=== PATIENT | male | born 1950 | race Caucasian/White ===

== ENCOUNTER 2019-06-24 12:35 | Inpatient (IN) ==
[2019-06-24] MEDS ORDERED: AMPICILLIN/SULBACTAM SOD 3,000 MG in 0.9 % SODIUM CHLORIDE 100 ML IV STA (14:14)
[2019-06-24 14:32] LABS: Basophils # (auto) 0.02 K/uL (0-0.2); Basophils % (auto) 0.1 %; Eosinophils # (auto) 0.09 K/uL (0-0.5); Eosinophils % (auto) 0.6 %; Hematocrit (blood only) 37.4 % (42-52); Hemoglobin 12.9 g/dL (14.0-18.0); Immature Granulocytes # (auto) 0.08 K/uL (0.00-0.02); Immature Granulocytes % (auto) 0.5 %; Lymphocytes # (auto) 1.37 K/uL (1.2-3.4); Lymphocytes % (auto) 8.9 %; Mean Corpuscular Hemoglobin 31.9 pg (25-34); Mean Corpuscular Hgb Conc 34.5 g/dL (32-36); Mean Corpuscular Volume 92.3 fL (80-100); Mean Platelet Volume 11.3 fL (7.4-10.4); Monocytes # (auto) 1.17 K/uL (0.11-0.59); Monocytes % (auto) 7.6 %; Neutrophils % (auto) 82.3 %; Platelet Count 149 K/uL (130-400); RDW Coefficient of Variation 13.8 % (11.5-14.5); RDW Standard Deviation 46.8 fL (36.4-46.3); Red Blood Count 4.05 M/uL (4.7-6.1); White Blood Count 15.43 K/uL (4.8-10.8)
[2019-06-24 14:55] LABS: Alanine Aminotransferase 35 U/L (12-78); Albumin Level 3.3 gm/dl (3.4-5.0); Aspartate Aminotransferase 23 U/L (15-37); BUN Creatinine Ratio 11.7 (10-20); Blood Urea Nitrogen 13 mg/dl (7-18); Calcium 8.9 mg/dl (8.5-10.1); Carbon Dioxide 25 mmol/L (21-32); Chloride 101 mmol/L (98-107); Est GFR (African American) 81.1; Glucose 207 mg/dl (70-99); Potassium 4.1 mmol/L (3.5-5.1); Sodium 136 mmol/L (136-145)
[2019-06-24 14:58] LABS: Albumin Globulin Ratio 0.8 (0.9-2); Alkaline Phosphatase 88 U/L (45-117); Bilirubin,Total 1.1 mg/dl (0.2-1); Globulin 4.1 gm/dl (2.5-4.0); Total Protein 7.4 gm/dl (6.4-8.2)
[2019-06-24] MEDS ORDERED: AZITHROMYCIN 500 MG in DEXTROSE 5% 250 ML IV SCH (15:45)
--- NOTE | 2019-06-24 15:55 | Ultrasound Report ---
US venous doppler UE LT CLINICAL HISTORY: Left upper extremity swelling. Evaluate for deep venous thrombus. COMPARISON STUDY: No previous studies for comparison. FINDINGS: The left internal jugular, subclavian, axillary, brachial, basilic, radial and ulnar veins were patent. Dorsal left hand edema is noted. No fluid collection is identified. IMPRESSION: No deep venous thrombus within the left upper extremity. Electronically signed by: Manohar Coelho M.D. 06/24/2019 3:54 PM
--- NOTE | 2019-06-24 16:31 | XRay Report ---
LEFT HAND 3 VIEWS CLINICAL HISTORY: Cat-bite injury. FINDINGS: 3 views of the left hand are obtained. No prior studies are available for comparison at the time of dictation. The skeletal structures are osteopenic. No fracture is seen. There is no bony ero martha or periostitis. Advanced degenerative narrowing is seen at the radiocarpal articulation with bon y sclerosis. There is also degenerative change at the distal radioulnar joint. Moderate arthritic issac nge is noted first carpometacarpal articulation where there is bony sclerosis, overgrowth, and mild s ubluxation. Arthritic change is also seen involving the interphalangeal joints, distal greater than p roximal. Diffuse soft tissue edema is present throughout the wrist and hand, greatest dorsally. No newell bcutaneous gas is seen and there is no radiodense foreign body identified. IMPRESSION: 1. Diffuse soft tissue edema with no acute osseous abnormality identified. 2. Osteopenia and arthritic change as above. Electronically signed by: Elgin Selby M.D. 06/24/2019 4:29 PM
--- NOTE | 2019-06-24 16:32 | XRay Report ---
XR chest 2V routine CLINICAL HISTORY: 69 years-old Male presenting with fever eval for pna. TECHNIQUE: PA and lateral views of the chest were obtained. COMPARISON: 04/12/2012. FINDINGS: Atherosclerosis of the aortic arch. Cardiac silhouette borderline enlarged. Interstitial prominence w ith coarsened lung markings. No new focal opacity. No pleural effusion or pneumothorax. Degenerative changes of the thoracic spine. Upper abdomen normal. IMPRESSION: 1. No acute cardiopulmonary disease. Electronically signed by: Ge Dalton M.D. 06/24/2019 4:31 PM
[2019-06-24] MEDS ORDERED: IBUPROFEN 200 MG TAB PO STA (16:45)
[2019-06-24 17:04] LABS: Partial Thromboplastin Time 27.1 Seconds (21.0-31.0); Prothrombin Time 10.3 Seconds (9.0-12.0)
--- NOTE | 2019-06-24 17:59 | History & Physical Report ---
Date of Service June 24, 2019 Assessment & Plan (1) Infection of left hand: Cellulitis from unknown source. Cat-bite is possible etiology, though this happened ~3 weeks ago without any sign of infection until now. Given the remote time frame, Pasteurella and tularemia are both unlikely. - Vanc/Unasyn for MRSA and Gram(-) & anaerobic coverage - Discussed with ortho PA - Will get hand & wrist MRI for concern for tenosynovitis - Ortho consult entered - Follow cultures (2) Diabetes: No A1c on file. - Continue long-acting insulin (lowered slightly for his poor appetite and possible need for surgery) - Sliding scale insulin - Get A1c - Glycemic pharmacist consult (3) Hypertension: BP is presently 170/90; likely from pain and anxiety. - Continue home meds - Monitor BP; adjust as needed (4) DVT prophylaxis: SCDs - Low risk per calculator and also in case of need for surgery History of Present Illness Primary Care Provider: MICHAEL Keys-C 69yo M w/ hx of DM, HTN who presents with left hand cellulitis, concerning for deeper infection. Patient reports he was bit by a cat about 3 weeks ago. No major issues after the bite. Then, on Monday, he noted left hand swelling and pain. He reports the pain is worse in the knuckles and wrist. The pain and swelling has been getting steadily worse without any relieving or exacerbating factors. He called his PCP on Monday, and was told to go to the ER. In the ER, hand x-ray does not show os teomyelitis. He does have trouble closing the fist and moving the wrist. He reports that he has felt generalized malaise, subjective fevers (nothing objective, no temp taken), some nausea (no vomiting), and loss of appetite. He felt he had a flu on Monday due to some general fevers, rigors, and muscle aches, but this has actually improved mildly today. Allergies Allergy/AdvReac Type Severity Reaction Status Date / Time gemfibrozil Allergy Unknown ON MY Verified 06/24/19 13:43 RECORD, I DON'T KNOW WHY bupropion AdvReac Unknown PT STATES Verified 06/24/19 13:43 "IT MAKES ME CRAZY" Home Medications Home Medications Medication Instructions Recorded Confirmed Type gabapentin 600 mg PO BID 06/24/19 06/24/19 History insulin glargine 45 unit SUBCUT DAILY@0800 06/24/19 06/24/19 History insulin glargine 60 unit SUBCUT DAILY@199906/24/19 06/24/19 History lisinopril 5 mg PO QAM 06/24/19 06/24/19 History metformin 1,000 mg PO BID 06/24/19 06/24/19 History metoprolol tartrate 50 mg PO BID 06/24/19 06/24/19 History nitroglycerin 0.4 mg SUBLINGUAL UD 06/24/19 06/24/19 History paroxetine HCl [Paxil] 40 mg PO HS 06/24/19 06/24/19 History rosuvastatin [Crestor] 40 mg PO HS 06/24/19 06/24/19 History topiramate [Topamax] 75 mg PO BID 06/24/19 06/24/19 History Past Med/Surg History Medical History Diabetes (Chronic) Heart disease (Chronic) Hypertension (Chronic) Family History Mother Diabetes Social History Feels Safe at Home: Yes Smoking Status: Never smoker Hx Alcohol Use: No Hx Substance Use: No Review of Systems Review of Systems: All systems reviewed & are unremarkable except as noted in HPI & below Physical Exam Constitutional: WD/WN, vitals as above Eyes: EOM intact bilaterally; no conjunctival abnormality ENMT: external ear and nose normal, oropharynx normal Neck: trachea midline, no thyromegaly normal visual inspection Respiratory: normal respiratory effort, lungs clear to auscultation no respiratory distress Cardiovascular: RRR, no murmur, no edema Gastrointestinal (Abdomen): Inspection/Auscultation: abdomen normal to inspection; abdomen not distended Musculoskeletal: no cyanosis or clubbing, extremities motor strength 5/5 Skin: + skin tightening, + wound (Small wound on dorsum of left hand) and + erythema (Left hand with erthema marked with marker.); no fluctulance (No fluctuance or crepitus noted in the left hand) Neurologic: moves all extremities and awake Psychiatric: Orientation: alert, oriented to person and cooperative Results & Data Vital Signs (Past 12 Hours) Vital Signs Temp Pulse Pulse Resp BP BP Pulse Ox 06/24/19 16:40 80 18 172/93 H 95 06/24/19 15:17 76 22 166/93 H 95 06/24/19 12:51 37.7 C H 82 20 198/89 H 94 Code Status & VTE Plan VTE Prophylaxis Plan VTE Prophylaxis will be ordered: Yes PG Care Time/CCT Total # of Minutes Spent Total Time Spent with Patient: Total time spent is greater than 50% in coordination of care (as documented) at patient's floor/unit and/or counseling patient:
[2019-06-24] MEDS ORDERED: SIMETHICONE 80 MG CHEW PO PRN (18:05)
[2019-06-24] MEDS ORDERED: MoRPHine SULFATE 4 MG/ML 1 ML CARP\\VIAL IV PRN (18:27)
[2019-06-24] MEDS ORDERED: GLUCAGON FOR INJ 1 MG VIAL SQ PRN (18:27)
[2019-06-24] MEDS ORDERED: DEXTROSE 50% 50 ML SYRINGE IV PRN (18:27)
[2019-06-24] MEDS ORDERED: ONDANSETRON INJ 2 MG/ML 2 ML VIAL IV PRN (18:27)
[2019-06-24] MEDS ORDERED: CARBOHYDRATES FOR HYPOGLYCEMIA PO PRN (18:27)
[2019-06-24] MEDS ORDERED: GLUCOSE 10 TABS/TUBE PO PRN (18:27)
[2019-06-24] MEDS ORDERED: VANCOMYCIN CONSULT ACTIVE PRN (18:27)
[2019-06-24] MEDS ORDERED: GLUCOSE 40% GEL 15 GM TUBE PO PRN (18:27)
[2019-06-24] MEDS ORDERED: ACETAMINOPHEN 325 MG TAB PO PRN (18:27)
[2019-06-24] MEDS ORDERED: PHARMACY GLYCEMIC MGMT CONSULT PRN (18:32)
[2019-06-24] MEDS ORDERED: VANCOMYCIN HCL 2,750 MG in SODIUM CHLORIDE 0.9% 500 ML IV STA (19:13)
--- NOTE | 2019-06-24 20:26 | Pharmacy Report ---
Pharmacy Abx Dose Short Note - Date of Service June 24, 2019 - Assessment & Plan Assessment 69 year old M receiving IV Vancomycin and Unasyn (not a consult) for treatment of L hand cellulitis Day # 1 of antimicrobial therapy. * Patient is at risk for Vancomycin drug accumulation due to obesity, BMI 41.7 kg/m2. Therefore will dose Vancomycin conservatively * No renal impairment noted. Recent sCr = 1.07 mg/dL, CrCl ~90 mL/min. Estimated pharmacokinetics: * Ke ~0.079/hr, T1/2 ~8.8 hrs Plan Vancomycin * Give Vancomycin 2750mg (~20mg/kg) IV x 1 as loading dose * Initiate Vancomycin 1750mg (~13mg/kg) IV q10 as maintenance regimen * Goal trough level for cellulitis : ~15 mcg/mL * Trough level ordered for: 06/26/19 @ 0330 (prior to 3rd dose and therefore not reflective of steady state, but want to assess dosing regimen earlier due to o besity) Pharmacy will continue to follow and will adjust dose/frequency as necessary. Thank you.
[2019-06-24] MEDS ORDERED: INSULIN GLARGINE SOLOSTAR 100 UNITS/ML 3 ML PEN SQ ONE (21:00)
--- NOTE | 2019-06-24 21:51 | Emergency Department Note ---
Entered by Darrel Villegas acting as a scribe for History of Present Illness General Chief complaint: Flu Like Symptoms Stated complaint: FLU LIKE SYMPTOMS,SWELLING/PAIN IN HAND Source: patient and family Limitations: no limitations History of Present Illness Provider complaint: Infection Onset (ago): week(s) 2 Location: upper extremity (hand) and left Radiation: non-radiation Severity: moderate Maximum Pain Intensity: 6 Quality: + other (Swelling) Relieved By: + none Exacerbated By: + none Associated symptoms: + cough, + fever/chills, + rash, + shortness of breath and + other (-abdominal pain, -diarrhea); no chest pain Treatments prior to arrival: none The patient is 69 a year old male who presents to the Emergency Department with complaints of a cat bite on his left hand that occurred two weeks ago. Per the patient, his wound was clean and fine until four days ago when his hand began to swell. He states it hurts on the back of his hand toward the wrist. He denies any injuries after the bite. The patient developed a fever recently. He also has a productive cough with yellow phlegm. The patient denies any abdominal pain, diarrhea, chest pain. He denies smoking. The patient is not on blood thinners. He was not seen by medical practitioner for his cat bite. This was his cat which he states is just a mean cat and bites. Its vaccinations are up-to-date. Home Medications Home Medications Medication Instructions Recorded Confirmed Type gabapentin 600 mg PO BID 06/24/19 06/24/19 History insulin glargine 45 unit SUBCUT DAILY@0800 06/24/19 06/24/19 History insulin glargine 60 unit SUBCUT DAILY@199906/24/19 06/24/19 History lisinopril 5 mg PO QAM 06/24/19 06/24/19 History metformin 1,000 mg PO BID 06/24/19 06/24/19 History metoprolol tartrate 50 mg PO BID 06/24/19 06/24/19 History nitroglycerin 0.4 mg SUBLINGUAL UD 06/24/19 06/24/19 History paroxetine HCl [Paxil] 40 mg PO HS 06/24/19 06/24/19 History rosuvastatin [Crestor] 40 mg PO HS 06/24/19 06/24/19 History topiramate [Topamax] 75 mg PO BID 06/24/19 06/24/19 History Allergies Allergy/AdvReac Type Severity Reaction Status Date / Time gemfibrozil Allergy Unknown ON MY Verified 06/24/19 13:43 RECORD, I DON'T KNOW WHY bupropion AdvReac Unknown PT STATES Verified 06/24/19 13:43 "IT MAKES ME CRAZY" Past Med/Surg History Medical History Diabetes (Chronic) Heart disease (Chronic) Hypertension (Chronic) Family History Mother Diabetes Social History Preferred Language: Martiniquais Communication Ability: Effective Beliefs That Will Affect Care: None Current Living Situation: Spouse and Family Current Living Situation Comment: Grandson lives at home Feels Safe at Home: No Is there a partner from a previous relationship who is making you feel unsafe now?: No Smoking Status: Former smoker Tobacco Type: cigarettes ; Second Hand Exposure: No ; Hx Alcohol Use: No Hx Substance Use: No Review of Systems See HPI for pertinent positives & negatives. and A total of 10 systems reviewed and were otherwise negative Physical Exam Vital Signs Vital Signs - 24 hr 06/24/19 12:51 06/24/19 15:17 06/24/19 16:40 Temperature 37.7 C H Temperature Source Oral Sepsis Recent Fever Within 48 Hours No Sepsis Action Taken by Nursing No Action Required Pulse Rate 82 Pulse Rate [Left Finger] 76 80 Respiratory Rate 20 22 18 Respiratory Effort / Characteristics Non-Labored Spontaneous Respiratory Depth Normal Normal Respiratory Pattern Regular Blood Pressure 198/89 H Blood Pressure [Right Arm] 166/93 H 172/93 H Blood Pressure Mean 125 Blood Pressure Mean [Right Arm] 117 119 Blood Pressure Position [Right Arm] Lying Pulse Oximetry 94 95 95 Oxygen Delivery Method Room Air Room Air Room Air Constitutional: Vital signs reviewed. Eyes: Pupils are equal round reactive to light. Conjunctiva are noninjected. ENT: Pharynx is clear without erythema or exudate. Mucous membranes are moist. Neck supple without meningeal signs. Respiratory: Clear to auscultation bilaterally. Breath sounds are equal bilaterally. Cardiovascular: Regular rate and rhythm. No rubs or gallops. GI: Soft, nondistended and nontender. Bowel sounds are present. Musculoskeletal: Puncture wound to dorsum of the left hand over the second metacarpal. Diffuse erythema to the left hand extending to the mid forearm dorsally, swelling to the proximal digits of left hand, greatest in digits 2 and 3. Slight pain with passive extension of those fingers. Integumentary: No cyanosis. Neurological: The patient is awake and alert. No focal deficits. Psychiatric: Normal affect. Course 1410: Medical records reviewed. The patient was seen in room B11B, a physical examination was performed. 1613: I spoke with the patient about his test results. He is agreeable to admission. 1618: I Spoke to Tarsha, Equity Manager, who is going to see where the patient ap l be best severed. They have a bed for him at the [facility] in [place]. 1626: I spoke with the relations manager spoke to patient about going to the [facility] in [place], he declined. 1627: I talked to the patient, he states his symptoms are the same, I discussed his test results with him and we are now waiting for Lyme and TSH results. 1630: Dr. Chester, [facility] Hospitalist, about the patients case and she will accept the patient for further evaluation. 1700: The patient was admitted. Administered Medications Discontinued Medications Ampicillin Sodium/Sulbactam Sodium 3,000 mg/ Sodium Chloride 108 mls @ 200 mls/hr IV NOW STA; Protocol Stop: 06/24/19 14:46 Last Infusion: 06/24/19 16:15 Dose: 0 mls/hr Documented by: [id number] Admin: 06/24/19 15:14 Dose: 200 mls/hr Documented by: [id number] Azithromycin 500 mg/ Dextrose 255 mls @ 127.5 mls/hr IV UD REJI Stop: 06/26/19 15:44 Last Infusion: 06/24/19 19:10 Dose: 0 mls/hr Documented by: [id number] Admin: 06/24/19 16:40 Dose: 127.5 mls/hr Documented by: [id number] Ibuprofen (Advil) 400 mg PO NOW STA Stop: 06/24/19 16:46 Last Admin: 06/24/19 17:02 Dose: 400 mg Documented by: [id number] Medical Decision Making Differential Diagnosis Differential Diagnosis: Cellulitis, tenosynovitis, PNA, bacteremia, cat bite Medical Records Attestation: I reviewed the patient's medical records. I did perform a limited focused review of portions of the patient's old chart on the electronic medical record. The patient has had no recent pertinent visits to this hospital. Home Medications Current Medication List: was personally reviewed by me Laboratory Data Attestation: I reviewed the patient's lab results. Result diagrams: 06/24/19 14:19 06/24/19 14:19 Lab Results 06/24/19 06/24/19 06/24/19 Range/Units 14:19 14:19 14:19 WBC 15.43 H (4.8-10.8) K/uL RBC 4.05 L (4.7-6.1) M/uL Hgb 12.9 L (14.0-18.0) g/dL Hct 37.4 L (42-52) % MCV 92.3 (80-100) fL MCH 31.9 (25-34) pg MCHC 34.5 (32-36) g/dL RDW Std Deviation 46.8 H (36.4-46.3) fL RDW Coeff of Cirilo 13.8 (11.5-14.5) % Plt Count 149 (130-400) K/uL MPV 11.3 H (7.4-10.4) fL Immature Gran % (Auto) 0.5 % Neut % (Auto) 82.3 % Lymph % (Auto) 8.9 % [place] % (Auto) 7.6 % Eos % (Auto) 0.6 % Baso % (Auto) 0.1 % Immature Gran # (Auto) 0.08 H (0.00-0.02) K/uL Neut # (Auto) 12.70 H (1.4-6.5) K/uL Lymph # (Auto) 1.37 (1.2-3.4) K/uL [place] # (Auto) 1.17 H (0.11-0.59) K/uL Eos # (Auto) 0.09 (0-0.5) K/uL Baso # (Auto) 0.02 (0-0.2) K/uL ESR 66 H (0-14) mm/hr PT (9.0-12.0) Seconds INR (0.9-1.1) APTT (21.0-31.0) Seconds PTT Ratio Sodium 136 (136-145) mmol/L Potassium 4.1 (3.5-5.1) mmol/L Chloride 101 (98-107) mmol/L Carbon Dioxide 25 (21-32) mmol/L Anion Gap 10.0 (3-11) BUN 13 (7-18) mg/dl Creatinine 1.07 (0.6-1.4) mg/dl Est Cr Clr Drug Dosing Not Reportable Est GFR ( Amer) 81.1 Est GFR (Non-Af Amer) 70.0 BUN/Creatinine Ratio 11.7 (10-20) Glucose 207 H (70-99) mg/dl POC Glucose (70-99) Calcium 8.9 (8.5-10.1) mg/dl Total Bilirubin 1.1 H (0.2-1) mg/dl AST 23 (15-37) U/L ALT 35 (12-78) U/L Alkaline Phosphatase 88 (45-117) U/L C-Reactive Protein (0-0.29) mg/dl Total Protein 7.4 (6.4-8.2) gm/dl Albumin 3.3 L (3.4-5.0) gm/dl Globulin 4.1 H (2.5-4.0) gm/dl Albumin/Globulin Ratio 0.8 L (0.9-2) 06/24/19 06/24/19 06/24/19 Range/Units 14:19 14:19 17:06 WBC (4.8-10.8) K/uL RBC (4.7-6.1) M/uL Hgb (14.0-18.0) g/dL Hct (42-52) % MCV (80-100) fL MCH (25-34) pg MCHC (32-36) g/dL RDW Std Deviation (36.4-46.3) fL RDW Coeff of Cirilo (11.5-14.5) % Plt Count (130-400) K/uL MPV (7.4-10.4) fL Immature Gran % (Auto) % Neut % (Auto) % Lymph % (Auto) % [place] % (Auto) % Eos % (Auto) % Baso % (Auto) % Immature Gran # (Auto) (0.00-0.02) K/uL Neut # (Auto) (1.4-6.5) K/uL Lymph # (Auto) (1.2-3.4) K/uL [place] # (Auto) (0.11-0.59) K/uL Eos # (Auto) (0-0.5) K/uL Baso # (Auto) (0-0.2) K/uL ESR (0-14) mm/hr PT 10.3 (9.0-12.0) Seconds INR 1.0 (0.9-1.1) APTT 27.1 (21.0-31.0) Seconds PTT Ratio 1.0 Sodium (136-145) mmol/L Potassium (3.5-5.1) mmol/L Chloride (98-107) mmol/L Carbon Dioxide (21-32) mmol/L Anion Gap (3-11) BUN (7-18) mg/dl Creatinine (0.6-1.4) mg/dl Est Cr Clr Drug Dosing Est GFR ( Amer) Est GFR (Non-Af Amer) BUN/Creatinine Ratio (10-20) Glucose (70-99) mg/dl POC Glucose 158 H (70-99) Calcium (8.5-10.1) mg/dl Total Bilirubin (0.2-1) mg/dl AST (15-37) U/L ALT (12-78) U/L Alkaline Phosphatase (45-117) U/L C-Reactive Protein 14.40 H (0-0.29) mg/dl Total Protein (6.4-8.2) gm/dl Albumin (3.4-5.0) gm/dl Globulin (2.5-4.0) gm/dl Albumin/Globulin Ratio (0.9-2) Imaging Data Radiologist's Impression: Radiology results as stated below per my review and the radiologist's interpretation: LEFT HAND 3 VIEWS CLINICAL HISTORY: Cat-bite injury. FINDINGS: 3 views of the left hand are obtained. No prior studies are available for comparison at the time of dictation. The skeletal structures are osteopenic. No fracture is seen. There is no bony erosion or periostitis. Advanced degenerative narrowing is seen at the radiocarpal articulation with bony sclerosis. There is also degenerative change at the distal radioulnar joint. Moderate arthritic change is noted first carpometacarpal articulation where there is bony sclerosis, overgrowth, and mild subluxation. Arthritic change is also seen involving the interphalangeal joints, distal greater than proximal. Diffuse soft tissue edema is present throughout the wrist and hand, greatest dorsally. No subcutaneous gas is seen and there is no radiodense foreign body identified. IMPRESSION: 1. Diffuse soft tissue edema with no acute osseous abnormality identified. 2. Osteopenia and arthritic change as above. Electronically signed by: Elgin Selby M.D. 06/24/2019 4:29 PM XR chest 2V routine CLINICAL HISTORY: 69 years-old Male presenting with fever eval for pna. TECHNIQUE: PA and lateral views of the chest were obtained. COMPARISON: 04/12/2012. FINDINGS: Atherosclerosis of the aortic arch. Cardiac silhouette borderline enlarged. Interstitial prominence with coarsened lung markings. No new focal opacity. No pleural effusion or pneumothorax. Degenerative changes of the thoracic spine. Upper abdomen normal. IMPRESSION: 1. No acute cardiopulmonary disease. Electronically signed by: Ge Dalton M.D. 06/24/2019 4:31 PM US venous doppler UE LT CLINICAL HISTORY: Left upper extremity swelling. Evaluate for deep venous thrombus. COMPARISON STUDY: No previous studies for comparison. FINDINGS: The left internal jugular, subclavian, axillary, brachial, basilic, radial and ulnar veins were patent. Dorsal left hand edema is noted. No fluid collection is identified. IMPRESSION: No deep venous thrombus within the left upper extremity. Electronically signed by: Manohar Coelho M.D. 06/24/2019 3:54 PM Blood Pressure Blood Pressure Findings: Elevated blood pressure Blood Pressure Disposition: further management by hospitalist MARY Narrative I did evaluate the patient as noted above. The patient is presenting to an infection to his left hand and forearm. He was bitten by his cat but it was 2 w eeks ago. He states it was not really bothering him until about 3 to 4 days ago. He has significant swelling to the hand involving his digits. He does not have significant pain with passive extension of the fingers. I do not suspect tenosynovitis at this time but he is at risk for it. I did feel aggressive treatment of his infection would be best for him. IV access was established. I did order and personally reviewed the images of the patient's chest x-ray as described above. There is no evidence of pneumonia. I did order blood cultures. I did treat the patient with Unasyn IV as well as Zithromax IV. I did order and review the patient's blood work as noted in the electronic medical record. His white blood cell count, CRP and ESR are elevated. His is concerned about a DVT as he had a prior history. I did order Doppler ultrasound of the left upper extremity. I did review the images myself as well as the radiology report as described above. There is no evidence of DVT. I did discuss the test results with the patient. I did recommend hospitalization for IV antibiotics. I did speak to the pillowcase folder who spoke to the patient. He did not wish to be transferred to the [facility] in [place]. I therefore spoke to the hospitalist here for hospitalization. Impression & Plan Infection of left hand, Cat bite, Hyperglycemia Discharge Plan Visit Data *Final* Discharge Date/Time: 06/24/19 18:12 Chief Complaint: Flu Like Symptoms Stated Complaint: FLU LIKE SYMPTOMS,SWELLING/PAIN IN HAND ED Provider: Rohith Ritchie Discharge Problem: Infection of left hand, Cat bite, Hyperglycemia Patient Disposition: Admitted As Inpatient Discharge Instructions Interventions: ED Discharge Assessment Last Done: 06/24/19 18:12 Discharge Problem: Cat bite Qualifiers: Encounter type: initial encounter Qualified Code(s): W55.01XA - Bitten by cat, initial encounter The scribe's documentation has been prepared under my direction and personally reviewed by me in its entirety. I confirm that the note above accurately reflects all work, treatment, procedures, and medical decision making performed by me.
[2019-06-24] MEDS ORDERED: GADOBUTROL 65ML VIAL IV PRN (21:56)
[2019-06-24] MEDS: METOPROLOL TARTRATE 50 MG TAB PO SCH (22:43)
[2019-06-24] MEDS: ROSUVASTATIN CALCIUM 20 MG TAB PO SCH (22:43)
[2019-06-24] MEDS: GABAPENTIN 600 MG TAB PO SCH (22:44)
[2019-06-24] MEDS: PARoxetine HCl 20 MG TAB PO SCH (22:45)
[2019-06-24] MEDS: TOPIRAMATE 50 MG TAB PO SCH (22:45)
--- NOTE | 2019-06-24 22:48 | Magnetic Resonance Report ---
MR hand LT wo/w con CLINICAL HISTORY: 69 years-old Male presenting with cat bite in the center of the hand 2 weeks ago, d ifficulty straightening fingers, Concern for left hand tenosynovitis. TECHNIQUE: Multisequence, multiplanar MR imaging of the left hand was performed before and after the administration of intravenous contrast. IV contrast: 13.5 mL of Gadavist. COMPARISON: Plain radiographs from earlier today. FINDINGS: Localizer images: Unremarkable. Subcutaneous edema predominantly along the dorsum of the hand. Significant edema also tracks along th e extensor tendons of the hand. This is evident throughout the most prominently over the fourth and f ifth extensor tendons. Fluid noted to a lesser degree surrounding the remaining tendon sheaths in the extensor compartment and this fluid is not favored to be within the tendon sheaths given the jesse sed appearance of the tendons. Significant enhancement of the subcutaneous tissue and overlying skin as well as along the tendon sheaths. This enhancement pattern further suggests absence of fluid withi n the sheaths. No rim-enhancing collection is evident though there is focal nonenhancing fluid along the fifth metacarpal (series 12 image 28), measuring 12 mm in diameter. No abnormal enhancement of th e bone marrow. Subjacent bone marrow signal is preserved. Degenerative related cystic change noted in the ulnar aspe ct of the distal radius at the level of the radiolunate articulation. Associated degenerative related signal changes within the scaphoid and lunate as well as at the first carpometacarpal articulation. Lesser degree of degenerative related bone marrow changes within the remaining bones of the carpus an d at the distal radial ulnar joint. No fracture. No abnormal T1 hypointense signal to suggest osteomy elitis. Susceptibility artifact noted along the radial soft tissues of the dorsum of the hand near th e first interweb space. This is superficial along the skin. The carpal tunnel tendons are preserved. IMPRESSION: 1. Findings not convincing for infective tenosynovitis. Rather, extensive fluid and inflammatory issac nge appears to surround and compress the subjacent extensor tendon sheaths. There is resultant second monet mild inflammation of the tendon sheaths without tenosynovitis. 2. Focal nonenhancing fluid along the dorsum of the fifth metacarpal measuring 12 mm concerning for phlegmon/early abscess. 3. Extensive edema and abnormal enhancement along the dorsum of the hand consistent with cellulitis. 4. No evidence of osteomyelitis. Electronically signed by: Ge Dalton M.D. 06/24/2019 10:47 PM
[2019-06-24] MEDS: INSULIN ASPART 100 UNITS/ML 3 ML PEN SC SCH (22:53)
[2019-06-25] MEDS: AMPICILLIN/SULBACTAM SOD 3,000 MG in 0.9 % SODIUM CHLORIDE 100 ML IV SCH ×5 (00:50→21:50)
[2019-06-25 06:03] LABS: Hematocrit (blood only) 39.8 % (42-52); Hemoglobin 13.4 g/dL (14.0-18.0); Mean Corpuscular Hemoglobin 31.2 pg (25-34); Mean Corpuscular Hgb Conc 33.7 g/dL (32-36); Mean Corpuscular Volume 92.8 fL (80-100); Mean Platelet Volume 11.3 fL (7.4-10.4); Platelet Count 175 K/uL (130-400); RDW Coefficient of Variation 13.8 % (11.5-14.5); Red Blood Count 4.29 M/uL (4.7-6.1)
[2019-06-25 06:31] LABS: Estimated Average Glucose 160 mg/dl; Hemoglobin A1C 7.2 % (4.5-5.6)
[2019-06-25 06:38] LABS: BUN Creatinine Ratio 12.4 (10-20); Calcium 9.3 mg/dl (8.5-10.1); Creatinine Clr Calc Pharmacy 87.9 ml/min; Est GFR (African American) 78.4; Est GFR (Non-African American) 67.7; Magnesium 2.2 mg/dl (1.8-2.4); Potassium 3.7 mmol/L (3.5-5.1)
[2019-06-25] MEDS ORDERED: VANCOMYCIN HCL 1,750 MG in SODIUM CHLORIDE 0.9% 500 ML IV SCH (08:00)
--- NOTE | 2019-06-25 08:04 | Orthopedic Consultation ---
Date of Consultation June 25, 2019 Assessment & Plan (1) Infection of left hand: Continue current IV antibiotics at this time. Patient is improved over short period time with IV antibiotics. MRI was reviewed by Dr. Huston this AM. He is not convinced that this is a true abscess. Will reevaluate later today with Dr. Huston and make further recommendations. Supervising Physician Co-Signing Physician Notes Patient seen and examined. Agree with MICHAEL Soto's note above. Based on his MRI and exam, I think this is clearly cellulitis of his left hand and wrist. No evidence of flexor or extensor tenosynovitis, and no fluctuant fluid collection or abscess palpable on exam. No clearly identifiable abscess on the MRI. He has markedly improved with just a few days of IV antibiotics. He has excellent range of motion in his hand and fingers, and can make a full fist, other than his index finger, which is improving as well. No indication for acute surgical intervention at this time. We will continue to monitor him, and ensure that this resolves with antibiotics. Edwin Huston MD History of Present Illness Reason for Consultation: Cellulitis left hand and wrist Attending Physician: Sid Dutton MD History of Present Illness Patient is a 69-year-old white male who was admitted last night due to cellulitis of his left hand and wrist with extension of erythema up the forearm. Patient apparently was bitten by a cat 3 weeks ago however he had no signs of infection 2 weeks after that. Patient was doing well until this past Monday and Monday which she started to feel ill and had general malaise. Flulike s ymptoms with fevers and chills on Monday with some nausea but no vomiting. He began noting that he had some left hand and wrist erythema that began to worsen and became painful. This began to extend up the forearm and he came into the emergency room to be seen. He was admitted by [facility] hospitalist service and we have been asked to see him for his hand cellulitis. Patient was currently sleeping soundly whenever entering the room. Easily awoken. Patient states that his hand and wrist are feeling much better this morning. He feels that he has better range of motion and less pain. He states that the swelling has gone down quite a bit since last night. No other complaints at this time. Allergies Allergy/AdvReac Type Severity Reaction Status Date / Time gemfibrozil Allergy Unknown ON MY Verified 06/24/19 13:43 RECORD, I DON'T KNOW WHY bupropion AdvReac Unknown PT STATES Verified 06/24/19 13:43 "IT MAKES ME CRAZY" Home Medications Home Medications Medication Instructions Recorded Confirmed Type gabapentin 600 mg PO BID 06/24/19 06/24/19 History insulin glargine 45 unit SUBCUT DAILY@0800 06/24/19 06/24/19 History insulin glargine 60 unit SUBCUT DAILY@199906/24/19 06/24/19 History lisinopril 5 mg PO QAM 06/24/19 06/24/19 History metformin 1,000 mg PO BID 06/24/19 06/24/19 History metoprolol tartrate 50 mg PO BID 06/24/19 06/24/19 History nitroglycerin 0.4 mg SUBLINGUAL UD 06/24/19 06/24/19 History paroxetine HCl [Paxil] 40 mg PO HS 06/24/19 06/24/19 History rosuvastatin [Crestor] 40 mg PO HS 06/24/19 06/24/19 History topiramate [Topamax] 75 mg PO BID 06/24/19 06/24/19 History Patient History Medical History Diabetes (Chronic) Heart disease (Chronic) Hypertension (Chronic) Family History Mother Diabetes Social History Preferred Language: Luxembourgish Communication Ability: Effective Beliefs That Will Affect Care: None Current Living Situation: Spouse and Family Current Living Situation Comment: Grandson lives at home Feels Safe at Home: No Is there a partner from a previous relationship who is making you feel unsafe now?: No Smoking Status: Former smoker Tobacco Type: cigarettes ; Second Hand Exposure: No ; Hx Alcohol Use: No Hx Substance Use: No Physical Exam Physical Exam: Patient is a mildly obese white male, alert and oriented x3. No acute distress. Focusing exam on the left upper extremity, he has notable erythema over the dorsum of the hand that wraps around the left thumb around the thenar eminence. The erythema travels dorsally to the wrist and then proximally up the forearm over the lateral aspect stopping just shy of the elbow. He has mild tenderness on palpation of the dorsum of the hand with erythema and swelling noted. He does have wrinkling of the skin over the dorsum of the hand where the swelling has gone down since last night. No overt fluctuance is felt at this time. He has tenderness over the thenar eminence that is mild. Mild tenderness on palpation of the anterior wrist. He has no tenderness at the left elbow. Denies any left axillary tenderness at this time. He has good range of motion of his left elbow at this time. He is able to flex and extend the wrist without difficulty and states he has mild pain when doing so. He is just shy of making a full fist at this time which he states has improved since last night. No overt pain with active flexion extension of the fingers. He has very mild discomfort on passive dorsiflexion of the second and third fingers. No erythema in the fingers at this time. Sensation is intact and capillary refill is less than 2 seconds. Results & Data Vital Signs (Past 12 Hours) Vital Signs Temp Pulse Resp BP Pulse Ox 06/25/19 06:56 36.8 C 60 20 176/76 H 96 06/24/19 23:30 36.9 C 68 18 158/85 H 92 Laboratory Results Laboratory Results WBC 12.00 K/uL (4.8-10.8) H 06/25/19 05:49 RBC 4.29 M/uL (4.7-6.1) L 06/25/19 05:49 Hgb 13.4 g/dL (14.0-18.0) L 06/25/19 05:49 Hct 39.8 % (42-52) L 06/25/19 05:49 MCV 92.8 fL (80-100) 06/25/19 05:49 MCH 31.2 pg (25-34) 06/25/19 05:49 MCHC 33.7 g/dL (32-36) 06/25/19 05:49 RDW Std Deviation 47.0 fL (36.4-46.3) H 06/25/19 05:49 RDW Coeff of Cirilo 13.8 % (11.5-14.5) 06/25/19 05:49 Plt Count 175 K/uL (130-400) 06/25/19 05:49 MPV 11.3 fL (7.4-10.4) H 06/25/19 05:49 Immature Gran % (Auto) 0.5 % 06/24/19 14:19 Neut % (Auto) 82.3 % 06/24/19 14:19 Lymph % (Auto) 8.9 % 06/24/19 14:19 [place] % (Auto) 7.6 % 06/24/19 14:19 Eos % (Auto) 0.6 % 06/24/19 14:19 Baso % (Auto) 0.1 % 06/24/19 14:19 Immature Gran # (Auto) 0.08 K/uL (0.00-0.02) H 06/24/19 14:19 Neut # (Auto) 12.70 K/uL (1.4-6.5) H 06/24/19 14:19 Lymph # (Auto) 1.37 K/uL (1.2-3.4) 06/24/19 14:19 [place] # (Auto) 1.17 K/uL (0.11-0.59) H 06/24/19 14:19 Eos # (Auto) 0.09 K/uL (0-0.5) 06/24/19 14:19 Baso # (Auto) 0.02 K/uL (0-0.2) 06/24/19 14:19 ESR 66 mm/hr (0-14) H 06/24/19 14:19 PT 10.3 Seconds (9.0-12.0) 06/24/19 14:19 INR 1.0 (0.9-1.1) 06/24/19 14:19 APTT 27.1 Seconds (21.0-31.0) 06/24/19 14:19 PTT Ratio 1.0 06/24/19 14:19 Sodium 139 mmol/L (136-145) 06/25/19 05:49 Potassium 3.7 mmol/L (3.5-5.1) 06/25/19 05:49 Chloride 104 mmol/L (98-107) 06/25/19 05:49 Carbon Dioxide 27 mmol/L (21-32) 06/25/19 05:49 Anion Gap 8.0 (3-11) 06/25/19 05:49 BUN 14 mg/dl (7-18) 06/25/19 05:49 Creatinine 1.10 mg/dl (0.6-1.4) 06/25/19 05:49 Est Cr Clr Drug Dosing 87.9 ml/min 06/25/19 05:49 Est GFR ( Amer) 78.4 06/25/19 05:49 Est GFR (Non-Af Amer) 67.7 06/25/19 05:49 BUN/Creatinine Ratio 12.4 (10-20) 06/25/19 05:49 Glucose 114 mg/dl (70-99) H 06/25/19 05:49 POC Glucose 119 (70-99) H 06/25/19 08:07 Estimat Average Glucose 160 mg/dl 06/25/19 05:49 Hemoglobin A1c 7.2 % (4.5-5.6) H 06/25/19 05:49 Calcium 9.3 mg/dl (8.5-10.1) 06/25/19 05:49 Magnesium 2.2 mg/dl (1.8-2.4) 06/25/19 05:49 Total Bilirubin 1.1 mg/dl (0.2-1) H 06/24/19 14:19 AST 23 U/L (15-37) 06/24/19 14:19 ALT 35 U/L (12-78) 06/24/19 14:19 Alkaline Phosphatase 88 U/L (45-117) 06/24/19 14:19 C-Reactive Protein 14.40 mg/dl (0-0.29) H 06/24/19 14:19 Total Protein 7.4 gm/dl (6.4-8.2) 06/24/19 14:19 Albumin 3.3 gm/dl (3.4-5.0) L 06/24/19 14:19 Globulin 4.1 gm/dl (2.5-4.0) H 06/24/19 14:19 Albumin/Globulin Ratio 0.8 (0.9-2) L 06/24/19 14:19 Diagnostic Findings Patient: VAN REAL Date: 06/24/19 MR#: [id number]: [address] Acct ID:[id number]: Date: 1950[address] Zip: [place] [id number] Age: 69Location: 3N Sex: M Room/Bed: Banner2 Att Phy: Sid Dutton MDDiagnosis: LEFT HAND CELLULITIS Autumn Phy: Camila Helm PA-CService Date: 06/24/19 Fam Phy:Interpreting Phy: Ge Dalton MD Admit Phy: Sid Dutton MD Ordering Phy: Sid Dutton MD cc: ~ MR hand LT wo/w con CLINICAL HISTORY: 69 years-old Male presenting with cat bite in the center of the hand 2 weeks ago, difficulty straightening fingers, Concern for left hand tenosynovitis. TECHNIQUE: Multisequence, multiplanar MR imaging of the left hand was performed before and after the administration of intravenous contrast. IV contrast: 13.5 mL of Gadavist. COMPARISON: Plain radiographs from earlier today. FINDINGS: Localizer images: Unremarkable. Subcutaneous edema predominantly along the dorsum of the hand. Significant edema also tracks along the extensor tendons of the hand. This is evident throughout the most prominently over the fourth and fifth extensor tendons. Fluid noted to a lesser degree surrounding the remaining tendon sheaths in the extensor compartment and this fluid is not favored to be within the tendon sheaths given the compressed appearance of the tendons. Significant enhancement of the subcutaneous tissue and overlying skin as well as along the tendon sheaths. This enhancement pattern further suggests absence of fluid within the sheaths. No rim-enhancing collection is evident though there is focal nonenhancing fluid along the fifth metacarpal (series 12 image 28), measuring 12 mm in diameter. No abnormal enhancement of the bone marrow. Subjacent bone marrow signal is preserved. Degenerative related cystic change noted in the ulnar aspect of the distal radius at the level of the radiolunate articulation. Associated degenerative related signal changes within the scaphoid and lunate as well as at the first carpometacarpal articulation. Lesser degree of degenerative related bone marrow changes within the remaining bones of the carpus and at the distal radial ulnar joint. No fracture. No abnormal T1 hypointense signal to suggest osteomyelitis. Susceptibility artifact noted along the radial soft tissues of the dorsum of the hand near the first interweb space. This is superficial along the skin. The carpal tunnel tendons are preserved. IMPRESSION: 1. Findings not convincing for infective tenosynovitis. Rather, extensive fluid and inflammatory change appears to surround and compress the subjacent extensor tendon sheaths. There is resultant secondary mild inflammation of the tendon sheaths without tenosynovitis. 2. Focal nonenhancing fluid along the dorsum of the fifth metacarpal measuring 12 mm concerning for phlegmon/early abscess. 3. Extensive edema and abnormal enhancement along the dorsum of the hand consistent with cellulitis. 4. No evidence of osteomyelitis. Electronically signed by: Ge Dalton M.D. 06/24/2019 10:47 PM
[2019-06-25] MEDS: GABAPENTIN 600 MG TAB PO SCH ×2 (08:12→20:45)
[2019-06-25] MEDS: TOPIRAMATE 50 MG TAB PO SCH ×2 (08:12→20:45)
[2019-06-25] MEDS: lisinopriL 5 MG TAB PO SCH (08:12)
[2019-06-25] MEDS: METOPROLOL TARTRATE 50 MG TAB PO SCH ×2 (08:12→20:45)
[2019-06-25] MEDS: INSULIN ASPART 100 UNITS/ML 3 ML PEN SC SCH ×4 (08:36→20:40)
[2019-06-25] MEDS ORDERED: INSULIN GLARGINE SOLOSTAR 100 UNITS/ML 3 ML PEN SC ONE (09:00)
[2019-06-25] MEDS ORDERED: INFLUENZA ADMINISTRATION CHARGE ONE (09:15)
[2019-06-25] MEDS ORDERED: INFLUENZA VIRUS QUAD VACCINE 0.5 ML SYR IM ONE (09:15)
--- NOTE | 2019-06-25 14:53 | Pharmacy Report ---
Glycemic Control Consultation - Date of Service June 25, 2019 - Scope Scope: Glycemic Pharmacist consulted by Dr Dutton on 06/24/19 for glycemic control and to write orders per [facility] inpatient glycemic control protocol - Objective Weight: 135.7 kg Accuchecks BSG (last 24hrs): 06/24/19 06/24/19 06/24/19 14:19 17:06 20:10 Glucose 207 H POC Glucose 158 H 180 H 06/25/19 06/25/19 06/25/19 05:49 08:07 12:18 Glucose 114 H POC Glucose 119 H 172 H Laboratory Data (last 24hrs): 06/24/19 06/25/19 14:19 05:49 Potassium 4.1 3.7 Carbon Dioxide 25 27 Anion Gap 10.0 8.0 Creatinine 1.07 1.10 Est Cr Clr Drug Dosing Not Reportable 87.9 HbA1c: Hemoglobin A1c 7.2 % (4.5-5.6) H 06/25/19 05:49 - Recent Pertinent Medications Outpatient Anti-diabetic Regimen: * Lantus 45 units qam, 60 units qpm, Metformin 1000 mg BID * A1c = 7.2 % 06/25/19 The patient is currently receiving: * Basal insulin: Lantus per scale * Correctional Insulin: Novolog Correction per scale ACHS Goal Range: Low 110 mg/dL - High 140 mg/dL Correction Factor: 15 mg/dL/unit * Prandial insulin: Per carb ratio of 1 unit per 6 grams CHO consumed Risk Factors for Insulin Resistance: * Steroids: * Infection: Vanco + Unasyn * Pressors: * IVF: * Recent Surgery * Diet: T2DM * Mechanical Ventilation: - Assessment & Plan Assessment & Plan: ASSESSMENT: * Mr. Brown is admitted for a left hand cellulitis with possible cat bite/scratch etiology, currently being covered with vancomycin/unasyn, being followed by ortho * BSG was elevated on arrival, BSGs ranging from 114-180, patient received ~10% reduction of home lantus dose yesterday (95 units total), fasting BSG 119, will continue to dose lantus based on scale tonight with dose reduction up to 20% from home dose with addition of novolog bolus * Correction factor and carb ratio initiated at weight based stress of 2 last evening, not assess effectiveness yet, lunch BSG 172, may need to tighten carb ratio if dinner BSG above goal as well. PLAN FOR INPATIENT GLYCEMIC CONTROL: * Holding outpatient oral diabetes medications * Basal insulin * Lantus 40 units this AM * 45 units HS if BSG <110 mg/dL * 50 units HS if BSG 110-140 mg/dL * 55 units HS if BSG >140 mg/dL * Bolus insulin * NovoLog per scale ACHS or Q6hrs while NPO * Goal Range: Low 110 mg/dL - High 140 mg/dL * Correction Factor: 15 mg/dL/unit * Nutritional / Prandial insulin per carb ratio of 1 unit per 6 grams CHO consumed * Please note that the plan above was derived based on current level of insulin resistance and hospital stress. These recommendations are appropriate for inpatient admission only. Plan of care upon discharge will need to be reassessed to avoid potential outpatient hypo/hyperglycemia. Thank you.
--- NOTE | 2019-06-25 16:29 | Hospitalist Progress Note ---
Date of Service June 25, 2019 Assessment & Plan (1) Infection of left hand: Cellulitis from unknown source. Cat-bite is possible etiology, though this happened ~3 weeks ago without any sign of infection until now. Given the remote time frame, Pasteurella and tularemia are both unlikely. MRI of left hand on 06/24 showed a possible discrete fluid collection, but ortho feels this is not drainable. No osteomyelitis or tenosynovitis seen. - Vanc/Unasyn for MRSA and Gram(-) & anaerobic coverage - Discussed with ortho PA today. - Follow cultures (2) Diabetes: A1c was 7.2% this admission. - Continue long-acting insulin (initially lowered slightly for his poor appetite) - Sliding scale insulin - Glycemic pharmacist consult (3) Hypertension: BP was 170/90; likely from pain and anxiety. Now up to 150/80. - Continue home meds - Monitor BP; adjust home meds as needed (4) DVT prophylaxis: SCDs - Low risk per calculator Subjective Markedly improved swelling and pain. Patient can now move the hand without any problems. His appetite has returned. No fevers or chills overnight. Review of Systems Review of Systems: All systems reviewed & are unremarkable except as noted in HPI & below Physical Exam Constitutional: WD/WN, vitals as above Eyes: EOM intact bilaterally; no conjunctival abnormality ENMT: external ear and nose normal, oropharynx normal Neck: trachea midline, no thyromegaly normal visual inspection Respiratory: normal respiratory effort, lungs clear to auscultation no respiratory distress Cardiovascular: RRR, no murmur, no edema Gastrointestinal (Abdomen): Inspection/Auscultation: abdomen normal to inspection; abdomen not distended Musculoskeletal: no cyanosis or clubbing, extremities motor strength 5/5 Skin: + skin tightening, + wound (Small wound on dorsum of left hand) and + erythema (Improved left hand with erthema; within marked area.); no fluctulance (No fluctuance or crepitus noted in the left hand) Neurologic: moves all extremities and awake Psychiatric: Orientation: alert, oriented to person and cooperative Results & Data Vital Signs (Past 12 Hours) Vital Signs Temp Pulse Resp BP Pulse Ox 06/25/19 14:54 36.6 C 60 16 152/80 H 94 06/25/19 09:42 133/77 06/25/19 06:56 36.8 C 60 20 176/76 H 96 PG Care Time/CCT Total # of Minutes Spent Total Time Spent with Patient: Total time spent is greater than 50% in coordination of care (as documented) at patient's floor/unit and/or counseling patient:
[2019-06-25] MEDS: VANCOMYCIN HCL 1,750 MG in SODIUM CHLORIDE 0.9% 500 ML IV SCH (18:50)
[2019-06-25] MEDS: ROSUVASTATIN CALCIUM 20 MG TAB PO SCH (20:45)
[2019-06-25] MEDS: PARoxetine HCl 20 MG TAB PO SCH (20:45)
[2019-06-25] MEDS ORDERED: INSULIN GLARGINE SOLOSTAR 100 UNITS/ML 3 ML PEN SQ ONE (21:00)
[2019-06-26] MEDS ORDERED: VANCOMYCIN TROUGH ONE ×2 (03:30→18:30)
[2019-06-26] MEDS: AMPICILLIN/SULBACTAM SOD 3,000 MG in 0.9 % SODIUM CHLORIDE 100 ML IV SCH ×4 (04:02→21:35)
[2019-06-26 06:14] LABS: Hemoglobin 12.7 g/dL (14.0-18.0); Mean Corpuscular Hemoglobin 30.8 pg (25-34); Mean Corpuscular Hgb Conc 33.4 g/dL (32-36); Mean Corpuscular Volume 92.2 fL (80-100); Mean Platelet Volume 11.7 fL (7.4-10.4); Platelet Count 164 K/uL (130-400); RDW Coefficient of Variation 13.5 % (11.5-14.5); RDW Standard Deviation 45.8 fL (36.4-46.3); Red Blood Count 4.12 M/uL (4.7-6.1)
[2019-06-26 06:50] LABS: Calcium 8.9 mg/dl (8.5-10.1); Creatinine Clr Calc Pharmacy 84.1 ml/min; Est GFR (African American) 74.3; Est GFR (Non-African American) 64.1
[2019-06-26] MEDS: VANCOMYCIN HCL 1,750 MG in SODIUM CHLORIDE 0.9% 500 ML IV SCH ×4 (07:04→22:45)
--- NOTE | 2019-06-26 07:40 | Orthopedic Progress Note ---
Date of Service June 26, 2019 Assessment & Plan (1) Infection of left hand: Markedly improved cellulitis of Left hand/wrist. No surgery indicated at this time. Progressing well with IV antibx. Subjective HD 2 Cellulitis Left hand/wrist Pt sleeping upon entering the room. Easily awoken. No complaints this AM. States that his hand and arm continue to improve over time. Physical Exam Physical Exam: Pt's LUE continues to improve. Much less erythema/swelling over the dorsum of the hand today and up the forearm as well. ROM improved. Able to make a full fist this AM; Wrist with better ROM as well. Still mildly tender over the wrist on palpation medially. Minimal tenderness with passive DF of the index finger. Cap refill < 2 seconds. Results & Data Vital Signs (Past 12 Hours) Vital Signs Temp Pulse Resp BP Pulse Ox 06/26/19 07:08 36.7 C 65 18 161/81 H 93 06/26/19 00:05 151/85 H 06/25/19 22:55 36.9 C 64 18 172/89 H 93 06/25/19 20:46 61 159/76 H
[2019-06-26] MEDS: METOPROLOL TARTRATE 50 MG TAB PO SCH ×2 (08:43→21:27)
[2019-06-26] MEDS: lisinopriL 5 MG TAB PO SCH (08:43)
[2019-06-26] MEDS: GABAPENTIN 600 MG TAB PO SCH ×2 (08:44→21:27)
[2019-06-26] MEDS: INSULIN GLARGINE SOLOSTAR 100 UNITS/ML 3 ML PEN SQ SCH ×2 (08:44→21:30)
[2019-06-26] MEDS: TOPIRAMATE 50 MG TAB PO SCH ×2 (08:44→21:27)
[2019-06-26] MEDS: INSULIN ASPART 100 UNITS/ML 3 ML PEN SC SCH ×4 (08:45→21:32)
--- NOTE | 2019-06-26 09:30 | Pharmacy Report ---
Pharmacy Glycemic Short Note 2 - Date of Service June 26, 2019 - Glycemic Short BSG Results (Last 24 hours): 06/25/19 06/25/19 06/25/19 12:18 17:25 20:10 Glucose POC Glucose 172 H 102 H 142 H 06/26/19 06/26/19 05:30 08:02 Glucose 115 H POC Glucose 144 H OUTPATIENT ANTIDIABETIC REGIMEN: * :antus 45 units in AM + 60 units in PM * Metformin 1,000mg PO BIDM ASSESSMENT: * 69yo T2DM male with adequate outpatient control per recent A1c * Pt has been receiving 120 units of insulin per day with adequate control * 95 units of basal insulin * 25 units of bolus insulin * Regimen is heavily weighted towards basal insulin but this is c/w outpatient regimen- will try to redistribute regimen more equally. * Slightly decrease basal insulin from 95 to 90 units/day * Decrease CF only - BSG drops below goal range when both CF+CR insulin given. * May need to tighten CR but will re-assess after 24hrs PLAN FOR INPATIENT GLYCEMIC CONTROL: * Hold outpatient oral diabetes medications * Basal insulin * Lantus 45 units SQ BID * Bolus insulin * NovoLog per scale ACHS or Q6hrs while NPO * Goal Range: Low 110 mg/dL - High 140 mg/dL * Correction Factor: 20 mg/dL/unit {loosen CF from 15 to 20} * Nutritional / Prandial insulin per carb ratio of 1 unit per 6 grams CHO consumed
--- NOTE | 2019-06-26 17:51 | Hospitalist Progress Note ---
Date of Service June 26, 2019 Assessment & Plan (1) Infection of left hand: Cellulitis from unknown source. Cat-bite is possible etiology, though this happened ~3 weeks ago without any sign of infection until now. Given the remote time frame, Pasteurella and tularemia are both unlikely. MRI of left hand on 06/24 showed a possible discrete fluid collection, but ortho feels this is not drainable. No osteomyelitis or tenosynovitis seen. - Vanc/Unasyn for MRSA and Gram(-) & anaerobic coverage - Discussed with ortho PA today. - Blood cultures negative. - Improving today still. Will discuss with ID re: abx and duration. (2) Diabetes: A1c was 7.2% this admission. - Continue long-acting insulin (initially lowered slightly for his poor appetite) - Sliding scale insulin - Glycemic pharmacist consult - Sugars stable today ~140. (3) Hypertension: BP was 170/90; likely from pain and anxiety. Now up to 190/80. - Continue home meds - Monitor BP; adjust home meds as needed - Will increase lisinopril to 10mg (4) DVT prophylaxis: SCDs - Low risk per calculator Subjective Feeling better still today. Hand swelling is improving, though the pain isn't gone at this point. Review of Systems Review of Systems: All systems reviewed & are unremarkable except as noted in HPI & below Physical Exam Constitutional: WD/WN, vitals as above Eyes: EOM intact bilaterally; no conjunctival abnormality ENMT: external ear and nose normal, oropharynx normal Neck: trachea midline, no thyromegaly normal visual inspection Respiratory: normal respiratory effort, lungs clear to auscultation no respiratory distress Cardiovascular: RRR, no murmur, no edema Gastrointestinal (Abdomen): Inspection/Auscultation: abdomen normal to inspection; abdomen not distended Musculoskeletal: no cyanosis or clubbing, extremities motor strength 5/5 Skin: + wound (Small wound on dorsum of left hand) and + erythema (Improved left hand with erthema; within marked area.); no skin tightening and no fluctulance (No fluctuance or crepitus noted in the left hand) Neurologic: moves all extremities and awake Psychiatric: Orientation: alert, oriented to person and cooperative Results & Data Vital Signs (Past 12 Hours) Vital Signs Temp Pulse Resp BP Pulse Ox 06/26/19 15:13 36.5 C 59 L 18 187/85 H 94 06/26/19 07:08 36.7 C 65 18 161/81 H 93 PG Care Time/CCT Total # of Minutes Spent Total Time Spent with Patient: Total time spent is greater than 50% in coordination of care (as documented) at patient's floor/unit and/or counseling patient:
--- NOTE | 2019-06-26 19:52 | Pharmacy Report ---
Pharmacy Abx Dose Short Note - Date of Service June 26, 2019 - Assessment & Plan A/P Vanco trough prior to Css high. Given his bariatric nature he is at risk for vanco accumulation. Will adj dosing interval from q12 --->q14. Will check trough: 06/28 @1430, indicative of Css Pharmacy will continue to follow and will adjust dose/frequency as necessary. Thank you.
[2019-06-26] MEDS: ROSUVASTATIN CALCIUM 20 MG TAB PO SCH (21:26)
[2019-06-26] MEDS: PARoxetine HCl 20 MG TAB PO SCH (21:26)
[2019-06-27] MEDS: AMPICILLIN/SULBACTAM SOD 3,000 MG in 0.9 % SODIUM CHLORIDE 100 ML IV SCH ×2 (04:24→10:13)
[2019-06-27] MEDS: METOPROLOL TARTRATE 50 MG TAB PO SCH (08:48)
[2019-06-27] MEDS: GABAPENTIN 600 MG TAB PO SCH (08:49)
[2019-06-27] MEDS: TOPIRAMATE 50 MG TAB PO SCH (08:49)
[2019-06-27] MEDS ORDERED: lisinopriL 10 MG TAB PO SCH (09:00)
[2019-06-27] MEDS: INSULIN GLARGINE SOLOSTAR 100 UNITS/ML 3 ML PEN SQ SCH (09:29)
[2019-06-27] MEDS: INSULIN ASPART 100 UNITS/ML 3 ML PEN SC SCH ×2 (09:30→12:46)
[2019-06-27] MEDS: VANCOMYCIN HCL 1,750 MG in SODIUM CHLORIDE 0.9% 500 ML IV SCH (10:58)
--- NOTE | 2019-06-27 11:17 | Pharmacy Report ---
Pharmacy Glycemic Short Note 2 - Date of Service June 27, 2019 - Glycemic Short BSG Results (Last 24 hours): 06/26/19 06/26/19 06/26/19 12:06 17:34 20:45 POC Glucose 125 H 146 H 153 H 06/27/19 08:17 POC Glucose 122 H OUTPATIENT ANTIDIABETIC REGIMEN: * Lantus 45 units in AM + 60 units in PM * Metformin 1,000mg PO BIDM ASSESSMENT: * 69yo T2DM male with adequate outpatient control per recent A1c * BSGs ranging 122-153 over past 24 hours * Patient received 108 units of insulin yesterday (90 of which were basal) * Regimen is heavily weighted towards basal insulin but this is c/w outpatient regimen- will try to redistribute regimen more equally. * Slightly decrease basal insulin from 95 to 90 units/day * Decrease CF only - BSG drops below goal range when both CF+CR insulin given. * May need to tighten CR but will re-assess after 24hrs PLAN FOR INPATIENT GLYCEMIC CONTROL: * Hold outpatient oral diabetes medications * Basal insulin -continue * Lantus 45 units SQ BID * Bolus insulin - continue * NovoLog per scale ACHS or Q6hrs while NPO * Goal Range: Low 110 mg/dL - High 140 mg/dL * Correction Factor: 20 mg/dL/unit {loosen CF from 15 to 20} * Nutritional / Prandial insulin per carb ratio of 1 unit per 6 grams CHO consumed
[2019-06-27] MEDS ORDERED: AMOXICILLIN/CLAVULANATE 875 MG TAB PO SCH (17:00)
--- NOTE | 2019-06-27 17:10 | Discharge Summary ---
Date of Service June 27, 2019 Admission HPI Per Admitting Provider 69yo M w/ hx of DM, HTN who presents with left hand cellulitis, concerning for deeper infection. Patient reports he was bit by a cat about 3 weeks ago. No major issues after the bite. Then, on Monday, he noted left hand swelling and pain. He reports the pain is worse in the knuckles and wrist. The pain and swelling has been getting steadily worse without any relieving or exacerbating factors. He called his PCP on Monday, and was told to go to the ER. In the ER, hand x-ray does not show osteomyelitis. He does have trouble closing the fist and moving the wrist. He reports that he has felt generalized malaise, subjective fevers (nothing objective, no temp taken), some nausea (no vomiting), and loss of appetite. He felt he had a flu on Monday due to some general fevers, rigors, and muscle aches, but this has actually improved mildly today. Principal Diagnosis Cellulitis Discharge Exam Constitutional WD/WN, vitals as above Eyes EOM intact bilaterally; no conjunctival abnormality ENMT external ear and nose normal, oropharynx normal Neck trachea midline, no thyromegaly normal visual inspection Respiratory normal respiratory effort, lungs clear to auscultation no respiratory distress Cardiovascular RRR, no murmur, no edema Gastrointestinal (Abdomen) Inspection/Auscultation: abdomen normal to inspection; abdomen not distended Musculoskeletal no cyanosis or clubbing, extremities motor strength 5/5 Skin + wound (Small wound on dorsum of left hand) and + erythema (Improved left hand with erthema; within marked area.); no skin tightening and no fluctulance (No fluctuance or crepitus noted in the left hand) Neurologic moves all extremities and awake Psychiatric Orientation: alert, oriented to person and cooperative Discharge Data Allergies Allergy/AdvReac Type Severity Reaction Status Date / Time gemfibrozil Allergy Unknown ON MY Verified 06/24/19 13:43 RECORD, I DON'T KNOW WHY bupropion AdvReac Unknown PT STATES Verified 06/24/19 13:43 "IT MAKES ME CRAZY" Consultations 06/24/19 16:31 ED Decision to Admit Stat 06/24/19 18:27 Consult Orthopedic Surgery Routine Ordered Studies 06/24/19 14:16 US venous doppler UE LT Stat 06/24/19 18:27 MR hand LT wo/w con Urgent Hospital Course (1) Infection of left hand: Cellulitis from unknown source. Cat-bite is possible etiology, though this happened ~3 weeks ago without any sign of infection until now. Given the remote time frame, Pasteurella and tularemia are both unlikely. MRI of left hand on 06/24 showed a possible discrete fluid collection, but ortho feels this is not drainable. No osteomyelitis or tenosynovitis seen. - Initially on vanc/Unasyn for MRSA and Gram(-) & anaerobic coverage - Blood culture grew Gram negative bacilli -> Possibly from cat bite? - Improving today still. Will get 10 days total of antibioics (7 more days of Augmentin for the Gram(-)). End date: 07/03. - Follow up with Dr. Huston in a week to be sure it is healing well. (2) Diabetes: A1c was 7.2% this admission. - Continue long-acting insulin (initially lowered slightly for his poor appetite) - Sliding scale insulin - Discharged on home regimen (3) Hypertension: BP was 170/90; likely from pain and anxiety. Up to 190/80 during admission. - Increase lisinopril to 10mg - By discharge, BP was better with the higher dose. (4) DVT prophylaxis: SCDs - Low risk per calculator Total Time Total Time Spent Total Time Spent (In Minutes): 45 Discharge Plan Discharge Items Patient Disposition: Home - Self-Care Reason For Visit: LEFT HAND CELLULITIS Discharge Diagnosis: Left hand cellulitis Activity: Resume your previous activity Non-emergency contact: Primary Care Provider Call non-emergency contact if: your symptoms worsen, your pain is worsening and your temperature is above 101 Follow-up/Referrals: Edwin Huston M.D. [Physician] - (Call for appointment within the next week.) Camila Helm PA-C [Primary Care Provider] - 07/02/19 9:00 am (Please, follow up at [facility] in [place] with Camila Helm PA-C on MondayJuly 02 at 9:00 am. *If you need to change this appointment, call the office at [phone].) Diet: Carb Consistent or DM2 Addtl Attending Provider Instructions: Please take your Augmentin 2 times per day. First dose will be tonight before bed. Please take all the mediation until it is gone, even if your hand is feeling better beforehand. We also increased your lisinopril in the hospital to 10mg (still a fairly low dose) because your blood pressure was elevated here. If it starts to get redder, more painful, more swollen, or if you have any other concerns, please call your doctors or go to the ER. Addtl Medical Assistant Per Diem Provider Instructions: Continue to do gentle range of motion exercises with your hand and wrist. Take all antibiotics until finished. Follow up with Dr Huston at [facility] in 7-10 days. Call for an appointment. [phone] Pending Studies at Discharge: No Stand-Alone Forms: [facility] Medications and DC Order Prescriptions: New amoxicillin-pot clavulanate 875-125 mg Tablet 1 tab PO BIDM Qty: 14 RF: 0 lisinopril 10 mg Tablet 10 mg PO QAM Qty: 30 RF: 0 Continued metformin 1,000 mg Tablet 1,000 mg PO BID RF: 0 metoprolol tartrate 50 mg Tablet 50 mg PO BID RF: 0 nitroglycerin 0.4 mg Tablet, Sublingual 0.4 mg sublingual UD RF: 0 gabapentin 300 mg Capsule 600 mg PO BID RF: 0 paroxetine HCl [Paxil] 40 mg Tablet 40 mg PO HS RF: 0 rosuvastatin [Crestor] 40 mg Tablet 40 mg PO HS RF: 0 topiramate [Topamax] 50 mg Tablet 75 mg PO BID RF: 0 insulin glargine 100 unit/mL (3 mL) Insulin Pen 45 unit SUBCUT DAILY@0800 RF: 0 insulin glargine 100 unit/mL (3 mL) Insulin Pen 60 unit SUBCUT DAILY@2000 RF: 0 Discontinued lisinopril 5 mg Tablet 5 mg PO QAM RF: 0 Discharge Orders: Discharge Order (Routine); Ordered 06/27/19 Ordered By: Sid Dutton Admission Data Admit Date/Time: 06/26/19 18:01 Attending Provider: Sid Dutton Admit Provider: Sid Dutton Primary Care Provider: Camila Helm Other Providers: Emeterio Chester ; Edwin Huston Other Interventions: Discharge Summary Assessment (RN) Last Done: 06/27/19 13:00 DC Date/Time DO NOT enter until pt leaves facility: 06/27/19 14:16
[2019-06-28] MEDS ORDERED: VANCOMYCIN TROUGH ONE (14:30)
== END 2019-06-27 14:16 | disposition home or self-care (01) | DRG 603 ==
LOC: 3N 12:35 → ED 12:35 → 3N 18:12